=== PATIENT | female | born 1985 | race Caucasian/White ===

== ENCOUNTER 2016-12-15 01:50 | Outpatient (CLI) | payer OTHER ==
[2016-12-15 04:21] VITALS: BMI 34.9
== END 2016-12-15 04:33 | disposition home or self-care (01) ==
LOC: FBCOUT 01:50 → FBC 01:50 → FBCOUT 04:33
PROVIDERS: ATTEND Family Medicine
DX: O26.899 Other specified pregnancy related conditions, unspecified trimester (principal); N94.89 Other specified conditions associated with female genital organs and menstrual cycle; Z3A.00 Weeks of gestation of pregnancy not specified
CPT/HCPCS: 59025; G0463

== ENCOUNTER 2016-12-22 21:27 | Inpatient (IN) | payer OTHER ==
[2016-12-22] MEDS ORDERED: PENICILLIN G POTASSIUM 5 MMU in NS 0.9% (MINI-BAG PLUS) 100 ML IV ONE (22:25)
[2016-12-22] MEDS ORDERED: LACTATED RINGERS 1,000 ML IV SCH (22:30)
[2016-12-22] MEDS ORDERED: OXYTOCIN 10 UNITS/ML VIAL ONE (22:36)
[2016-12-22] MEDS ORDERED: LIDOCAINE 1% (PRES FREE) 30 ML VIAL ONE (22:36)
[2016-12-22] MEDS ORDERED: MINERAL OIL 25 ML BOT ONE (22:36)
[2016-12-22] MEDS ORDERED: IV START KIT ONE (22:36)
[2016-12-22] MEDS ORDERED: LIDOCAINE Viscous 2% 15 ML UDCUP ONE (22:37)
[2016-12-22] MEDS ORDERED: PUMP TUBING ONE (22:37)
[2016-12-22] MEDS ORDERED: EPIDURAL PUMP SET ONE ×2 (22:37→23:27)
[2016-12-22] MEDS ORDERED: FENTANYL/ROPIVACAINE EPIDURAL 250 ML EP ONE ×2 (22:37→23:27)
[2016-12-22] MEDS ORDERED: PENICILLIN G POTASSIUM 5 MMU VIAL ONE (22:38)
[2016-12-22] MEDS ORDERED: NS 0.9% (MINI-BAG PLUS) 100 ML IV ONE (22:39)
[2016-12-22] MEDS: LACTATED RINGERS 1,000 ML IV PRN (23:14)
[2016-12-22 23:29] LABS: HEMATOCRIT 41.1 % (37.0-47.0); HEMOGLOBIN 13.3 gm/l (12.0-16.0); MEAN CELL VOLUME 83.9 fl (81.0-99.0); MEAN CORPUSCULAR HEMOGLOBIN 27.1 pg (27.0-31.0); MEAN CORPUSCULAR HGB CONC 32.4 g/dl (33.0-37.0); RED CELL DISTRIBUTION WIDTH 13.3 % (11.5-14.5)
[2016-12-22] MEDS ORDERED: EPIDURAL PROCEDURE TRAY ONE (23:43)
[2016-12-23] MEDS: FENTANYL/ROPIVACAINE EPIDURAL 250 ML EP SCH ×2 (00:04→07:10)
[2016-12-23] MEDS ORDERED: MINERAL OIL 25 ML BOT TP ONE (00:09)
[2016-12-23] MEDS: LACTATED RINGERS 1,000 ML IV PRN (00:15)
[2016-12-23] MEDS: OXYTOCIN IN LR 500 ML IV ONE ×2 (00:28→01:20)
[2016-12-23] MEDS ORDERED: SODIUM CHLORIDE 0.9% 500 ML IV PRN (01:03)
[2016-12-23] MEDS ORDERED: METOCLOPRAMIDE HCL 5 MG/ML 2ML VIAL IV PRN (01:03)
[2016-12-23] MEDS ORDERED: EPHEDRINE SULFATE 50 MG/ML 1ML VIAL IV PRN (01:03)
[2016-12-23] MEDS ORDERED: LACTATED RINGERS 500 ML IV PRN (01:03)
[2016-12-23] MEDS ORDERED: NALBUPHINE HCL 20 MG/ML AMP IV PRN (01:03)
[2016-12-23] MEDS ORDERED: ONDANSETRON 4 MG/2ML 2 ML VIAL IV PRN (01:03)
[2016-12-23] MEDS ORDERED: NALOXONE HCL 0.4 MG/ML VIAL IV PRN (01:03)
[2016-12-23] MEDS ORDERED: DIPHENHYDRAMINE HCL 50 MG/1 ML VIAL IV PRN (01:03)
[2016-12-23] MEDS ORDERED: MAGNESIUM HYDROXIDE 30 ML UDCUP PO PRN (01:07)
[2016-12-23] MEDS ORDERED: LANOLIN 50 APPLIC/7G TUBE TP PRN (01:07)
[2016-12-23] MEDS ORDERED: BENZOCAINE/MENTHOL 60 APPLIC/BOT TP PRN (01:07)
[2016-12-23] MEDS ORDERED: HYDROCODONE/ACETAMINOPHEN 5/325MG TABLET PO PRN (01:07)
[2016-12-23] MEDS ORDERED: SENNOSIDES 8.6 MG TABLET PO PRN (01:07)
[2016-12-23] MEDS ORDERED: OXYCODONE HCL 5 MG TABLET PO PRN (01:07)
[2016-12-23] MEDS ORDERED: CALCIUM CARBONATE 500 MG TAB.CHEW PO PRN (01:07)
--- NOTE | 2016-12-23 01:12 | PCMDEL ---
Delivery Note - Labor 1st stage (hr/min):: 12/22/16 2210---12/23/16 0022 2 hrs 12 min 2nd stage (hr/min):: 12/23/16 0022---0027 5 min 3rd stage (hr/min):: 12/23/16 0027---0032 5 min Total (hr/min):: 2 hours 22 minutes Pushed (hr/min):: 1 push - Delivery Delivery (Date): 12/23/16 Delivery (Time): 00:27 Gender: Female Weight: 3.925 kg Presentation: Cephalic Position: OA Umbilical Cord: 3 Vessel Delayed Cord Clamping:: > 3 min 1 Minute Total: 8 5 Minute Total: 8 Placenta:: intact normal EBL:: <100 Perineum:: small 2nd degree repaired Suture:: 3-0 chromic Anesthesia/Meds:: Epidural Length ROM:: 5 minutes
--- NOTE | 2016-12-23 01:19 | PCMAN ---
OB Admission Note - History : 5 Term: 4 Livin EDC:: 12/26/16 Gestational Age (weeks): 39 Days (#/7): 3 Admit Cervical Dilation:: 5 Admit Cervical Effacement (%):: 80 Admit Station:: -2 Admit Presentaton:: vtx Membrane Status: Bulging Rupture (Date): 12/23/16 Rupture (Time): 00:22 Membranes Comment:: clear fluid Labor Onset (Date): 12/22/16 Labor Onset (Time): 22:10 Contractions: Yes Contraction Frequency:: 3-10 minutes Heart Rate:: 150 Status:: Cat 1 EFW:: 9 pounds Summary of Course:: Routine PNC. Received Rhogam at appropriate time. Was diagnosed with Stan 's thyroiditis right before . Placed on Levothyroxine 50mcg, adequately replaced on labs. Had some blurry vision that she related to the Levothyroxine and cut dose in half. F/U labs ok, but pt stopped medication on her own accord at some point - Labs Blood Type: B (-) negative Rubella Status: Immune GBS Status: Positive Abnormal Labs: Other (abnl 1 hr GTT, nl 3 hr gtt) - Physical Exam General: Afebrile Psych/Mental Status: Mood/Affect Appropriate Neurological: Grossly Intact, Alert, Oriented x 4 Genitourinary: Normal Female Genitalia Extremities: Edema (trace pretibial) Skin: Normal Color, Warm, Dry, Intact - Problems (1) Term Status: Acute Code: Z34.80Assessment/Plan: Pt admitted due to advanced cervical dilatation and abx ordered and given due to GBS positive status. 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
[2016-12-23 01:59] VITALS: BMI 19.5
[2016-12-23] MEDS ORDERED: PENICILLIN G 3 MIL UNIT PREMIX 3 MMU in Premix (D5W) 50 ml 1 EACH IV SCH (02:30)
[2016-12-23] MEDS ORDERED: IV START KIT ONE (03:03)
[2016-12-23] MEDS ORDERED: FAMOTIDINE 20 MG TABLET ONE (04:42)
[2016-12-23] MEDS: FAMOTIDINE 20 MG TABLET PO SCH (04:44)
[2016-12-23] MEDS: IBUPROFEN 800 MG TABLET PO SCH ×4 (04:44→22:38)
[2016-12-24] MEDS: IBUPROFEN 800 MG TABLET PO SCH ×4 (06:04→20:16)
[2016-12-24 06:12] LABS: HEMATOCRIT 34.7 % (37.0-47.0)
--- NOTE | 2016-12-24 08:34 | PDOC39B ---
ADMIT DATE: 12/22/16 DISCHARGE DATE: 12/24/16 ADMISSION DIAGNOSES: active labor 39w3d GBS positive DISCHARGE DIAGNOSES: s/p 2nd degree perineal laceration repaired GBS positive CONSULTS: none PROCEDURES: , repair of 2nd degree perineal laceration HISTORY OF PRESENT ILLNESS: 30 year old at 39 weeks 3 days presenting with painful irregular contractions, but found to be 5/80/-2 with BBOW and was admitted and started on IV abx. She progressed rapidly. She was able to have an epidural placed for pain control and went on to deliver a viable female infant over 2nd degree perineal laceration. DELIVERY INFORMATION: Delivery Date/Time: 12/23/16 @ 00:27 Weight: 3.925 kg Totals: 1 minute 8, 5 minute 8 Lacerations: small 2nd degree repaired Repair: 3-0 chromic Anesthesia/Meds: Epidural Blood Loss: <100 HOSPITAL COURSE: The patient did well PP. Immediate PP after repair completed, she did have 1 gush of blood but then IV was restarted and pitocin infusion was continued as well as fundal massage and that seemed to resolve the bleeding. By day of discharge the patient is ambulating, eating, voiding, and passing flatus without difficulty. Pain is controlled and lochia is appropriate. She is . - Physical Exam Vital Signs: Temp Pulse Resp BP Pulse Ox 97.8 F 57 16 107/64 12/24/16 02:50 12/24/16 02:50 12/24/16 02:50 12/24/16 02:50 General: Afebrile Psych/Mental Status: Mood/Affect Appropriate, Judgment/Insight Intact, Bonding Well Neurological: Grossly Intact, Alert, Oriented x 4 Lungs: Clear to Auscultation Bilaterally, Normal Air Movement Cardiovascular: Regular Rate and Rhythm, Normal S1, Normal S2, No Murmur Fundus: Firm, Below Umbilicus Abdomen: No Tenderness, No Distention Extremities: Full ROM, Edema (trace pretibial), No Tenderness Skin: Normal Color, Warm, Dry, Intact - Discharge Diagnosis (1) Spontaneous vaginal delivery Status: AcuteAssessment/Plan: PPD #1 S/P doing well wants to go home today. Reviewed care and PP care Plans Vasectomy (2) Stan's thyroiditis Status: AcuteAssessment/Plan: Check TSH due to Hashimotos thyroiditis since she stopped Levothyroxine-- reviewed TSH is in normal range--recommend check at 6 weeks, 6 months and 1 year - Discharge Plan Condition: Good Disposition: Home Prescriptions: Ibuprofen [IBUPROFEN 800 MG TABLET (SHF)] 800 mg PO Q8H #30 Hydrocodone Bit/Acetaminophen [NORCO 5/325 MG TABLET (SHF)] 1 - 2 tab PO Q4H PRN #14 PRN Reason: Pain (Moderate) Follow-Up: Josiane August MD [Primary Care Provider] - In 6 weeks
[2016-12-24 20:35] VITALS: BP 116/68
[2016-12-24] MEDS: FAMOTIDINE 20 MG TABLET PO SCH (22:07)
== END 2016-12-24 22:01 | disposition home or self-care (01) | DRG 775 ==
LOC: FBCOUT 21:27 → FBC 21:27 → FBCOUT 22:10 → FBC 22:10
PROVIDERS: ADMIT Family Medicine; ATTEND Family Medicine
PROC: 10E0XZZ Delivery of Products of Conception, External Approach (ICD-10-PCS; principal; 2016-12-23)
PROC: 0KQM0ZZ Repair Perineum Muscle, Open Approach (ICD-10-PCS; 2016-12-23)
DX: O70.1 Second degree perineal laceration during delivery (principal); O99.824 Streptococcus B carrier state complicating childbirth; O99.284 Endocrine, nutritional and metabolic diseases complicating childbirth; E06.3 Autoimmune thyroiditis; O09.43 Supervision of pregnancy with grand multiparity, third trimester; Z3A.40 40 weeks gestation of pregnancy; Z37.0 Single live birth